=== PATIENT | male | born 1960 | race Caucasian/White ===

== ENCOUNTER 2019-10-20 05:55 | Inpatient (IN) | payer OTHER ==
--- NOTE | 2019-10-17 11:18 | PCM.SN.2 ---
- Free Text/Narrative Note: Left selective femoral nerve block at the adductor canal for post-procedure pain control under US guidance requested by Dr. Lima. Time Out: 912 Start: 914 End: 921 Chart reviewed. Consent signed. Questions answered. Appropriate monitors applied. Time out performed. Left mid-shaft femur identified with ultrasound, scanning medially of femur, the femoral artery in the adductor canal visualized, and the femoral nerve located laterally to the artery. The skin was prepped lateral to the ultrasound probe with chlorahexadine times two. The 21ga 4 insulated block needle was inserted under direct ultrasound guidance into the adductor canal. 25mL of 0.5% ropivacaine with 1:200,000 epinephrine was injected circumferentially around the nerve with intermittent negative aspiration noted. Patient tolerated the procedure well. Sterile technique noted along with sterile gloves, mask, and sterile probe cover. See picture on progress note and vital signs on nurses notes. Block completed in PACU. Nery Lassiter CRNA
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
[~2019-10-20 05:55] MED LIST: Acetaminophen 325 MG Tab PO SCH; Lactated Ringers 1,000 ML IV SCH; Lidocaine 1%/Sod Bicarbonate in NS 8.4% 1 ML Syringe IDERM PRN; Sodium Chloride 0.9% 10 ML Syringe FLUSH PRN
[2019-10-20] MEDS ORDERED: Acetaminophen 325 MG Tab PO SCH (06:00)
[2019-10-20] MEDS ORDERED: oxyCODONE ER 10 MG TAB.ER PO SCH (06:00)
[2019-10-20] MEDS ORDERED: Pregabalin 25 MG Cap PO SCH (06:00)
[2019-10-20] MEDS ORDERED: Albuterol 0.083% 2.5 MG/3 ML Neb Soln NEB PRN ×2 (06:00→07:31)
[2019-10-20] MEDS ORDERED: Morphine 2 MG/ML SYRINGE IVPUSH PRN (06:05)
[2019-10-20] MEDS ORDERED: Bisacodyl 5 MG Tab PO PRN (06:05)
[2019-10-20] MEDS ORDERED: Magnesium Hydroxide 400 MG/5 ML Susp 30 ML Cup PO PRN (06:05)
[2019-10-20] MEDS ORDERED: Sennosides 8.6 MG Tab PO PRN (06:05)
[2019-10-20] MEDS ORDERED: Naloxone 0.4 MG/ML SDV IVPUSH PRN (06:05)
[2019-10-20] MEDS ORDERED: Ondansetron 4 MG/2 ML SDV IVPUSH PRN ×2 (06:05→07:31)
[2019-10-20] MEDS ORDERED: Bupivacaine 0.25% 10 ML SDV ONE (06:28)
[2019-10-20] MEDS ORDERED: Vancomycin 1 GM SDV ONE (06:28)
[2019-10-20] MEDS ORDERED: Iodine/Sodium Iodide 2% Tincture 30 ML Bottle ONE (06:29)
[2019-10-20] MEDS ORDERED: ceFAZolin 1 GM Vial ONE ×2 (06:29→06:39)
[2019-10-20] MEDS ORDERED: Ondansetron 4 MG/2 ML SDV ONE (06:39)
[2019-10-20] MEDS ORDERED: Lidocaine 1% 6 ML ONE (06:39)
[2019-10-20] MEDS ORDERED: Ketorolac 30 MG/ML SDV ONE (06:39)
[2019-10-20] MEDS ORDERED: Lactated Ringers 2,000 ML ONE (06:39)
[2019-10-20] MEDS ORDERED: Propofol 200 MG/20 ML SDV ONE ×5 (06:40→08:36)
[2019-10-20] MEDS ORDERED: fentaNYL 100 MCG/2 ML SDV ONE (06:40)
[2019-10-20] MEDS ORDERED: Midazolam 1 MG/ML 2 ML SDV ONE (06:41)
[2019-10-20] MEDS ORDERED: Ketamine 500 mg/10 ML MDV ONE (06:41)
[2019-10-20] MEDS ORDERED: EPINEPHrine 1 MG/ML SDV ONE (06:46)
[2019-10-20] MEDS ORDERED: Ropivacaine 0.5% 5 MG/ML 30 ML SDV ONE (06:47)
[2019-10-20] MEDS ORDERED: ePHEDrine 50 MG/ML SDV IVPUSH PRN (07:31)
[2019-10-20] MEDS ORDERED: diphenhydrAMINE 50 MG/ML SDV IVPUSH PRN (07:31)
[2019-10-20] MEDS ORDERED: HYDROmorphone 0.5 MG/0.5 ML Syringe IVPUSH PRN (07:37)
[2019-10-20] MEDS ORDERED: Phenylephrine 1 MG in Sodium Chloride 0.9% 10 ML IV PRN (07:45)
[2019-10-20] MEDS: Morphine 8 MG, EPINEPHrine 0.3 MG, Cefuroxime 750 MG, Ketorolac 30 MG, Sodium Chloride ... ONE ×5 (08:33)
--- NOTE | 2019-10-20 09:10 | PCM.POSTAN ---
POST ANESTHESIA ASSESSMENT - MENTAL STATUS Mental Status: Alert - VITAL SIGNS Vital Signs: Last Vital Signs Temp 97.9 10/20/19 09 Pulse 65 10/20/19 0902 Resp 18 10/20/19 0902 BP 111/41 10/20/19901 Pulse Ox 96% 10/20/19901 - RESPIRATORY Respiratory Status: Respiratory Rate WNL, Airway Patent, O2 Saturation Stable, Supplemental Oxygen - CARDIOVASCULAR CV Status: Pulse Rate WNL, Blood Pressure Stable - GASTROINTESTINAL GI Status: No Symptoms - POST OP HYDRATION Hydration Status: Adequate & Stable
[2019-10-20] MEDS: fentaNYL 100 MCG/2 ML SDV IVPUSH PRN ×2 (09:12→09:30)
[2019-10-20] MEDS: Acetaminophen/oxyCODONE 325-5 MG Tab PO PRN ×3 (10:16→18:40)
--- NOTE | 2019-10-20 10:47 | CR ---
Left knee: AP and crosstable lateral views of the left knee were obtained. Comparison: Prior left knee MRI of 07/06/10. Knee prosthesis is seen. Components are aligned. Soft tissue air is noted from the surgical procedure. Underlying bony structures are intact. Impression: 1. Satisfactory radiographic appearance of recently placed left knee prosthesis. Diagnostic code #2 This report was dictated in MDT
--- NOTE | 2019-10-20 11:13 | PCM.OPNOTE ---
- General Post-Op/Procedure Note Date of Surgery/Procedure: 10/20/19 Operative Procedure(s): left total knee arthroplasty Pre Op Diagnosis: left knee osteoarthrosis Post-Op Diagnosis: Same Anesthesia Technique: Local, MAC, Spinal Primary Surgeon: Shayne Lima Anesthesia Provider: Nery Lassiter [employer] Worker: Melanie Solorzano [employer] Worker: Jeanie Malik EBL in mLs: 700 Complications: None Condition: Good Free Text/Narrative:: Intake & Output 10/19/19 10/20/19 10/20/19 22:59 06:59 14:59 Intake Total 580 Balance 580 6 femur 5 tibia 9mm 35x10
[2019-10-20] MEDS: Cyclobenzaprine 10 MG Tab PO PRN ×2 (11:26→20:10)
[2019-10-20] MEDS: Ketorolac 15 MG/ML SDV IVPUSH PRN ×2 (14:54→21:23)
[2019-10-20] MEDS: Gabapentin 600 MG Tab PO SCH ×2 (15:10→21:17)
[2019-10-20] MEDS: ceFAZolin 2 GM in Premix Bag 1 BAG IV SCH (16:48)
[2019-10-20] MEDS: ceFAZolin 1 GM in Premix Bag 1 BAG IV SCH (17:22)
--- NOTE | 2019-10-20 19:48 | PCM.CONS ---
H&P History of Present Illness - General Date of Service: 10/20/19 Admit Problem/Dx: Admission Diagnosis/Problem Admission Diagnosis/Problem Osteoarthritis of knee - History of Present Illness Initial Comments - Free Text/Narative: 59-year-old male who had left knee arthroplasty this morning by Dr. Lima. Medical team was consulted for medical management of his hypertension and hyperlipidemia. Postop patient is without chest pain, shortness of breath, nausea, vomiting. Blood pressures have been well controlled postop. Left Knee Pain Score (Numeric/FACES): 6 - Related Data Allergies/Adverse Reactions: Allergies Allergy/AdvReac Type Severity Reaction Status Date / Time No Known Allergies Allergy Verified 10/17/19 14:48 Home Medications: Home Meds Allopurinol [Zyloprim] 300 mg PO BID 08/06/15 [History] Furosemide [Lasix] 40 mg PO DAILY 08/06/15 [History] Lisinopril/Hydrochlorothiazide [Lisinopril-Hctz 20-25 mg Tab] 20 - 25 mg PO DAILY 08/06/15 [History] Aspirin 81 mg PO DAILY 10/17/19 [History] Gabapentin [Neurontin] 600 mg PO TID 10/17/19 [History] Metaxalone 800 mg PO DAILY PRN 10/17/19 [History] atorvaSTATin Calcium [Lipitor] 40 mg PO DAILY 10/17/19 [History] gemfibroziL [Gemfibrozil] 600 mg PO DAILY 10/17/19 [History] traMADol HCl [Tramadol HCl] 50 mg PO TID PRN 10/17/19 [History] Past Medical History HEENT History: Reports: Hard of Hearing Other HEENT History: right eustachian tube disorder, wears glasses Cardiovascular History: Reports: High Cholesterol, Hypertension, [place], Other (See Below) Other Cardiovascular History: About 5 years ago when having a stress test "it was found out that I had a heart attack from the scarring noted". Respiratory History: Reports: Asthma, Other (See Below) Other Respiratory History: Spring and fall allergies Gastrointestinal History: Reports: Colon Polyp Genitourinary History: Reports: None TRANSPORTATION TECHNICIAN History: Reports: None Musculoskeletal History: Reports: Back Pain, Chronic, Fracture Other Musculoskeletal History: lumbago, post laminectomy syndrome Neurological History: Reports: None Psychiatric History: Reports: None Endocrine/Metabolic History: Reports: Obesity/BMI 30+ Hematologic History: Reports: None Immunologic History: Reports: None Oncologic (Cancer) History: Reports: None Dermatologic History: Reports: None - Infectious Disease History Infectious Disease History: Reports: None - Past Surgical History Musculoskeletal Surgical History: Reports: Arthroscopic Knee Social & Family History - Family History Cardiac: Reports: Aneurysm, [place] Endocrine/Metabolic: Reports: Diabetes, Type I Hematologic: Reports: None Immunologic: Reports: None Oncologic: Reports: Ovarian, Uterine - Tobacco Use Smoking Status *Q: Current Every Day Smoker Years of Tobacco use: 40 Packs/Tins Daily: 0.1 Used Tobacco, but Quit: No - Caffeine Use Caffeine Use: Reports: Coffee, Soda - Alcohol Use Days Per Week of Alcohol Use: 1 Number of Drinks Per Day: 1 Total Drinks Per Week: 1 - Recreational Drug Use Recreational Drug Use: No H&P Review of Systems - Review of Systems: Review Of Systems: Comprehensive ROS is negative, except as noted in HPI. Exam - Exam Exam: See Below - Vital Signs Vital Signs: Last Vital Signs Temp 98.2 F 10/20/19 17:03 Pulse 90 10/20/19 17:03 Resp 14 10/20/19 17:03 BP 131/72 10/20/19 17:03 Pulse Ox 95 10/20/19 17:03 Weight: 154.675 kg - Exam General: Alert, Oriented, 4 HEENT: Conjunctiva Clear, Hearing Intact, Mucosa Moist & [place] Neck: Supple, Trachea Midline, 2 Lungs: Clear to Auscultation, Normal Respiratory Effort Cardiovascular: Regular Rate, Regular Rhythm GI/Abdominal Exam: Normal Bowel Sounds, Soft, Non-Tender, No Organomegaly, No Distention, No Abnormal Bruit, No Mass Extremities: Normal Inspection, Normal Range of Motion, Non-Tender, No Pedal Edema, Normal Capillary Refill Skin: Warm, Dry, Intact Neuro Extensive - Mental Status: Alert, Oriented x3, Normal Mood/Affect, Normal Cognition, Memory Intact Neuro Extensive - Motor, Sensory, Reflexes: CN II-XII Intact Psychiatric: Alert, Normal Affect, Normal Mood Sepsis Event Note - Evaluation Sepsis Screening Result: No Definite Risk - Focused Exam Vital Signs: Vital Signs Temp Temp Pulse Resp BP BP Pulse Ox 10/20/19 17:03 98.2 F 90 14 131/72 95 10/20/19 13:00 97.2 F 97 14 127/72 94 L 10/20/19 11:19 97 14 110/68 91 L 10/20/19 10:27 97.2 F 14 129/80 10/20/19 09:55 10/20/19 09:45 15 138/80 95 10/20/19 09:30 15 136/90 95 10/20/19 09:15 14 108/60 97 10/20/19 09:02 97.9 F 18 111/41 L 96 Pulse Ox 10/20/19 17:03 10/20/19 13:00 10/20/19 11:19 10/20/19 10:27 10/20/19 09:55 97 10/20/19 09:45 10/20/19 09:30 96 10/20/19 09:15 10/20/19 09:02 96 Consult PN Assessment/Plan POD#: 0 Procedures: Procedures ASSAY OF BLOOD/URIC ACID (10/22/13) COLONOSCOPY W/LESION REMOVAL (08/09/15) COMPLETE CBC W/AUTO DIFF WBC (10/10/13) COMPREHEN METABOLIC PANEL (10/10/13) LIPID PANEL (10/10/13) MRI JNT OF LWR EXTRE W/O DYE (10/08/18) MRI LUMBAR SPINE W/O & W/DYE (04/03/18) TISSUE EXAM BY PATHOLOGIST (08/09/15) (1) Hypertension SNOMED Code(s): 55873836 Code(s): I10 - ESSENTIAL (PRIMARY) HYPERTENSION Current Visit: Yes (2) Hyperlipidemia SNOMED Code(s): 28748194 Code(s): E78.5 - HYPERLIPIDEMIA, UNSPECIFIED Current Visit: Yes Problem List Initiated/Reviewed/Updated: Yes Plan: Postop left total knee arthroplasty * Pain meds per primary team * DVT prophylaxis per primary team Hypertension * Blood pressure well controlled postop: Blood pressures have ranged from 110/68-131/72 * Lisinopril hydrochlorothiazide restarted * Lasix held Hyperlipidemia * Atorvastatin and gemfibrozil restarted Patient is stable from a medical standpoint. Thank you for letting us participate in the care of this patient.
[2019-10-20] MEDS: Allopurinol 300 MG Tab PO SCH (21:17)
[2019-10-20] MEDS: Docusate Sodium 100 MG Cap PO SCH (21:17)
[2019-10-20] MEDS: Famotidine 20 MG Tab PO SCH (21:18)
[2019-10-21] MEDS: ceFAZolin 1 GM in Premix Bag 1 BAG IV SCH ×2 (00:44→08:34)
[2019-10-21] MEDS: ceFAZolin 2 GM in Premix Bag 1 BAG IV SCH ×2 (00:44→08:34)
[2019-10-21] MEDS: Acetaminophen/oxyCODONE 325-5 MG Tab PO PRN ×2 (00:45→06:00)
[2019-10-21] MEDS: Ketorolac 15 MG/ML SDV IVPUSH PRN (07:07)
--- NOTE | 2019-10-21 07:39 | PCM.CONSN ---
- General Info Date of Service: 10/21/19 Admission Dx/Problem (Free Text): Admission Diagnosis/Problem Admission Diagnosis/Problem Osteoarthritis of knee Functional Status: Reports: Pain Controlled, Tolerating Diet, Ambulating, Urinating, Incentive Spirometry. Denies: New Symptoms, Other - Review of Systems General: Reports: No Symptoms. Denies: Fever, Chills HEENT: Reports: No Symptoms. Denies: Headaches, Sore Throat Pulmonary: Reports: No Symptoms. Denies: Shortness of Breath, Pleuritic Chest Pain, Cough, Sputum, Wheezing Cardiovascular: Reports: No Symptoms. Denies: Chest Pain, Palpitations, Dyspnea on Exertion Gastrointestinal: Reports: No Symptoms. Denies: Abdominal Pain, Constipation, Nausea, Vomiting Genitourinary: Reports: No Symptoms. Denies: Pain Musculoskeletal: Reports: Leg Pain Skin: Reports: No Symptoms. Denies: Cyanosis Neurological: Reports: No Symptoms, Difficulty Walking, Gait Disturbance. Denies: Confusion, Pre-Existing Deficit, Trouble Speaking Psychiatric: Reports: No Symptoms. Denies: Confusion - Patient Data Vitals - Most Recent: Last Vital Signs Temp 99.0 F 10/21/19 04:22 Pulse 93 10/21/19 04:22 Resp 16 10/21/19 04:22 BP 107/91 H 10/21/19 04:22 Pulse Ox 91 L 10/21/19 04:22 Weight - Most Recent: 350 lb 6.4 oz I&O - Last 24 Hours: Intake & Output 10/20/19 10/21/19 10/21/19 22:59 06:59 14:59 Intake Total 220 750 Balance 220 750 Lab Results Last 24 Hours: Laboratory Results - last 24 hr 10/21/19 10/21/19 Range/Units 05:44 05:44 WBC 8.60 (4.23-9.07) K/mm3 RBC 4.51 L (4.63-6.08) M/mm3 Hgb 12.6 L (13.7-17.5) gm/dl Hct 38.0 L (40.1-51.0) % MCV 84.3 (79.0-92.2) fl MCH 27.9 (25.7-32.2) pg MCHC 33.2 (32.2-35.5) g/dl RDW Std Deviation 40.9 (35.1-43.9) fL Plt Count 177 (163-337) K/mm3 MPV 11.9 (9.4-12.3) fl Sodium 138 (136-145) mEq/L Potassium 3.7 (3.5-5.1) mEq/L Chloride 101 (98-107) mEq/L Carbon Dioxide 33 H (21-32) mEq/L Anion Gap 7.7 (5-15) BUN 18 (7-18) mg/dL Creatinine 0.9 (0.7-1.3) mg/dL Est Cr Clr Drug Dosing 92.38 mL/min Estimated GFR (MDRD) > 60 (>60) mL/min BUN/Creatinine Ratio 20.0 H (14-18) Glucose 109 H (74-106) mg/dL Total Bilirubin 0.6 (0.2-1.0) mg/dL AST 15 (15-37) U/L ALT 30 (16-63) U/L Alkaline Phosphatase 76 (46-116) U/L Total Protein 6.2 L (6.4-8.2) g/dl Albumin 3.3 L (3.4-5.0) g/dl Globulin 2.9 gm/dL Albumin/Globulin Ratio 1.1 (1-2) Med Orders - Current: Current Medications Allopurinol (Zyloprim) 300 mg PO BID [facility] Last Admin: 10/20/19 21:17 Dose: 300 mg Documented by: Aspirin (Ecotrin) 325 mg PO BID [facility] Bisacodyl (Dulcolax) 5 mg PO DAILY PRN PRN Reason: Constipation Cyclobenzaprine HCl (Flexeril) 10 mg PO TID PRN PRN Reason: Spasms Last Admin: 10/20/19 20:10 Dose: 10 mg Documented by: Docusate Sodium (Colace) 100 mg PO BID [facility] Last Admin: 10/20/19 21:17 Dose: 100 mg Documented by: Famotidine (Pepcid) 20 mg PO Q12H [facility] Last Admin: 10/20/19 21:18 Dose: 20 mg Documented by: Gabapentin (Neurontin) 600 mg PO TID [facility] Last Admin: 10/20/19 21:17 Dose: 600 mg Documented by: Gemfibrozil (Lopid) 600 mg PO DAILY [facility] Hydrochlorothiazide (Hydrochlorothiazide) 25 mg PO DAILY [facility] Cefazolin Sodium/Dextrose 2 gm (/ Premix) 50 mls @ 100 mls/hr IV Q8H [facility] Stop: 10/21/19 08:59 Last Admin: 10/21/19 00:44 Dose: 100 mls/hr Documented by: Cefazolin Sodium/Dextrose 1 gm (/ Premix) 50 mls @ 100 mls/hr IV Q8H [facility] Stop: 10/21/19 08:59 Last Admin: 10/21/19 00:44 Dose: 100 mls/hr Documented by: Lisinopril (Prinivil) 20 mg PO DAILY [facility] Magnesium Hydroxide (Milk Of Magnesia) 30 ml PO BID PRN PRN Reason: Constipation Morphine Sulfate (Morphine) 2 mg IVPUSH Q2H PRN PRN Reason: Breakthrough Pain Naloxone HCl (Narcan) 0.1 mg IVPUSH Q5M PRN PRN Reason: Oversedation Ondansetron HCl (Zofran) 4 mg IVPUSH Q6H PRN PRN Reason: Nausea/Vomiting Oxycodone/Acetaminophen (Percocet 325-5 Mg) 1 - 2 tab PO Q4H PRN PRN Reason: Pain Last Admin: 10/21/19 06:00 Dose: 2 tab Documented by: Rosuvastatin Calcium (Crestor) 10 mg PO DAILY [facility] Senna (Senna) 8.6 mg PO BID PRN PRN Reason: Constipation Discontinued Medications Acetaminophen (Tylenol) 650 mg PO ONETIME [facility] Acetaminophen (Tylenol) 975 mg PO ONETIME [facility] Stop: 10/20/19 12:00 Last Admin: 10/20/19 06:08 Dose: 975 mg Documented by: Albuterol (Proventil Neb Soln) 2.5 mg NEB ONETIME PRN PRN Reason: bronchodilation Stop: 10/20/19 18:00 Last Admin: 10/20/19 06:42 Dose: 2.5 mg Documented by: Albuterol (Proventil Neb Soln) 2.5 mg NEB ONETIME PRN PRN Reason: bronchodilation Stop: 10/20/19 13:00 Bupivacaine HCl (Sensorcaine-Mpf 0.25%) Confirm Administered Dose 30 ml .ROUTE .STK-MED ONE Stop: 10/20/19 06:29 Last Admin: 10/20/19 08:32 Dose: 30 ml Documented by: Cefazolin Sodium (Ancef) Confirm Administered Dose 2 gm .ROUTE .STK-MED ONE Stop: 10/20/19 06:30 Last Admin: 10/20/19 08:26 Dose: 2 gm Documented by: Cefazolin Sodium (Ancef) Confirm Administered Dose 3 gm .ROUTE .STK-MED ONE Stop: 10/20/19 06:40 Morphine Sulfate 8 mg/Epinephrine HCl 0.3 mg/Cefuroxime Sodium 750 mg/Ketorolac Tromethamine 30 mg/Sodium Chloride 7.9 ml 0 mg .XX ONETIME ONE Stop: 10/20/19 09:01 Last Admin: 10/20/19 08:33 Dose: 788.3 mg Documented by: Diphenhydramine HCl (Benadryl) 25 mg IVPUSH Q6H PRN PRN Reason: pruritis Stop: 10/20/19 18:00 Ephedrine Sulfate (Ephedrine Sulfate) 5 mg IVPUSH ASDIRECTED PRN PRN Reason: Hypotension Stop: 10/20/19 18:00 Epinephrine HCl (Adrenalin) Confirm Administered Dose 1 mg .ROUTE .STK-MED ONE Stop: 10/20/19 06:47 Fentanyl (Sublimaze) Confirm Administered Dose 100 mcg .ROUTE .STK-MED ONE Stop: 10/20/19 06:41 Fentanyl (Sublimaze) 50 mcg IVPUSH Q5M PRN PRN Reason: Pain Stop: 10/20/19 18:00 Last Admin: 10/20/19 09:30 Dose: 50 mcg Documented by: Hydromorphone HCl (Dilaudid) 0.5 mg IVPUSH ONETIME PRN PRN Reason: Pain Stop: 10/20/19 18:00 Last Admin: 10/20/19 09:05 Dose: 0.5 mg Documented by: Lactated Ringer's (Ringers, Lactated) 1,000 mls @ 125 mls/hr IV ASDIRECTED TERRI Stop: 10/20/19 23:00 Last Admin: 10/20/19 06:33 Dose: 125 mls/hr Documented by: Lidocaine HCl (Xylocaine-Mpf 1%) Confirm Administered Dose 6 mls @ as directed .ROUTE .STK-MED ONE Stop: 10/20/19 06:40 Lactated Ringer's (Ringers, Lactated) Confirm Administered Dose 2,000 mls @ as directed .ROUTE .STK-MED ONE Stop: 10/20/19 06:40 Phenylephrine HCl 1 mg/ Sodium (Chloride) 10.1 mls @ 1 mls/sec IV TITRATE PRN; Protocol PRN Reason: SEE COMMENT Stop: 10/20/19 18:00 Iodine (Iodine 2% Mild Tincture) Confirm Administered Dose 30 ml .ROUTE .STK-MED ONE Stop: 10/20/19 06:30 Last Admin: 10/20/19 08:25 Dose: 18 ml Documented by: Ketamine HCl (Ketalar) Confirm Administered Dose 500 mg .ROUTE .STK-MED ONE Stop: 10/20/19 06:42 Ketorolac Tromethamine (Toradol) 15 mg IVPUSH Q6H PRN PRN Reason: Pain Last Admin: 10/21/19 07:07 Dose: 15 mg Documented by: Ketorolac Tromethamine (Toradol) Confirm Administered Dose 30 mg .ROUTE .STK-MED ONE Stop: 10/20/19 06:40 Lidocaine/Sodium Bicarbonate (Buffered Lidocaine 1% In Ns 8.4%) 0.25 ml IDERM ONETIME PRN PRN Reason: Prior to IV Start Stop: 10/20/19 18:00 Last Admin: 10/20/19 06:33 Dose: 0.25 ml Documented by: Midazolam HCl (Versed 1 Mg/Ml) Confirm Administered Dose 2 mg .ROUTE .STK-MED ONE Stop: 10/20/19 06:42 Miscellaneous Medication (Phenylephrine 1 Mg/10 Ml-Ns) Confirm Administered Dose 0 mg IV .STK-MED ONE Stop: 10/20/19 06:40 Ondansetron HCl (Zofran) Confirm Administered Dose 4 mg .ROUTE .STK-MED ONE Stop: 10/20/19 06:40 Ondansetron HCl (Zofran) 4 mg IVPUSH ONETIME PRN PRN Reason: Nausea/Vomiting Stop: 10/20/19 18:00 Oxycodone HCl (Oxycontin) 10 mg PO ONETIME [facility] Stop: 10/20/19 12:00 Last Admin: 10/20/19 06:07 Dose: 10 mg Documented by: Pregabalin (Lyrica) 50 mg PO ONETIME [facility] Stop: 10/20/19 12:00 Last Admin: 10/20/19 06:08 Dose: 50 mg Documented by: Propofol (Diprivan 20 Ml) Confirm Administered Dose 400 mg .ROUTE .STK-MED ONE Stop: 10/20/19 06:41 Propofol (Diprivan 20 Ml) Confirm Administered Dose 200 mg .ROUTE .STK-MED ONE Stop: 10/20/19 07:53 Propofol (Diprivan 20 Ml) Confirm Administered Dose 200 mg .ROUTE .STK-MED ONE Stop: 10/20/19 08:10 Propofol (Diprivan 20 Ml) Confirm Administered Dose 200 mg .ROUTE .STK-MED ONE Stop: 10/20/19 08:22 Propofol (Diprivan 20 Ml) Confirm Administered Dose 200 mg .ROUTE .STK-MED ONE Stop: 10/20/19 08:37 Ropivacaine (Naropin 0.5%) Confirm Administered Dose 30 ml .ROUTE .STK-MED ONE Stop: 10/20/19 06:48 Sodium Chloride (Saline Flush) 10 ml FLUSH ASDIRECTED PRN PRN Reason: Keep Vein Open Stop: 10/20/19 18:00 Tranexamic Acid (Cyklokapron) Confirm Administered Dose 1,000 mg .ROUTE .STK-MED ONE Stop: 10/20/19 06:29 Last Admin: 10/20/19 08:40 Dose: 1,000 mg Documented by: Vancomycin HCl (Vancomycin) Confirm Administered Dose 1 gm .ROUTE .STK-MED ONE Stop: 10/20/19 06:29 Last Admin: 10/20/19 08:36 Dose: 1 gm Documented by: - Exam Quality Assessment: DVT Prophylaxis. No: Supplemental Oxygen, Urine Catheter General: Alert, Oriented, Cooperative, No Acute Distress HEENT: Pupils Equal, Pupils Reactive, Mucous Membr. Moist/Volin Neck: Supple, Trachea Midline Lungs: Clear to Auscultation, Normal Respiratory Effort Cardiovascular: Regular Rate, Regular Rhythm GI/Abdominal Exam: Normal Bowel Sounds, Soft, Non-Tender, No Organomegaly, No Distention (Male) Exam: Deferred Back Exam: Normal Inspection, Full Range of Motion Extremities: Leg Pain, Limited Range of Motion, Other (Bandage in place on right leg. Cooling pack in place.) Peripheral Pulses: 2+: Radial (L), Radial (R), Dorsalis Pedis (L), Dorsalis Pedis (R) Skin: Warm, Dry, Intact Wound/Incisions: Dressing Dry and Intact Neurological: No New Focal Deficit Psy/Mental Status: Alert, Normal Affect, Normal Mood Sepsis Event Note - Evaluation Sepsis Screening Result: No Definite Risk - Focused Exam Vital Signs: Vital Signs Temp Pulse Resp BP Pulse Ox 10/21/19 04:22 99.0 F 93 16 107/91 H 91 L 10/21/19 00:39 99.7 F 95 16 132/64 93 L 10/20/19 20:05 99.0 F 92 18 120/79 95 Consult PN Assessment/Plan POD#: 1 Procedures: Procedures ASSAY OF BLOOD/URIC ACID (10/22/13) COLONOSCOPY W/LESION REMOVAL (08/09/15) COMPLETE CBC W/AUTO DIFF WBC (10/10/13) COMPREHEN METABOLIC PANEL (10/10/13) LIPID PANEL (10/10/13) MRI JNT OF LWR EXTRE W/O DYE (10/08/18) MRI LUMBAR SPINE W/O & W/DYE (04/03/18) TISSUE EXAM BY PATHOLOGIST (08/09/15) (1) S/P total knee arthroplasty SNOMED Code(s): 5755373736108, 965684066, 5007961059568 Code(s): Z96.659 - PRESENCE OF UNSPECIFIED ARTIFICIAL KNEE JOINT Priority: High Current Visit: Yes Qualifiers: Laterality: left Qualified Code(s): Z96.652 - Presence of left artificial knee joint (2) Osteoarthritis SNOMED Code(s): 701960357 Code(s): M19.90 - UNSPECIFIED OSTEOARTHRITIS, UNSPECIFIED SITE Priority: High Current Visit: Yes Qualifiers: Osteoarthritis location: knee Osteoarthritis type: primary Laterality: left Qualified Code(s): M17.12 - Unilateral primary osteoarthritis, left knee (3) Obesity SNOMED Code(s): 111043949, 281740562 Code(s): E66.9 - OBESITY, UNSPECIFIED Priority: High Current Visit: Yes Qualifiers: Obesity type: unspecified obesity type Obesity classification: adult class 3 (BMI >= 40) Serious obesity comorbidity presence: unspecified whether serious comorbidity present Body mass index: BMI 50.0-59.9 Qualified Code(s): E66.01 - Morbid (severe) obesity due to excess calories; Z68.43 - Body mass index (BMI) 50.0-59.9, adult (4) Hyperlipidemia SNOMED Code(s): 48256911 Code(s): E78.5 - HYPERLIPIDEMIA, UNSPECIFIED Priority: Medium Current Visit: No Qualifiers: Hyperlipidemia type: unspecified Qualified Code(s): E78.5 - Hyperlipidemia, unspecified (5) Hypertension SNOMED Code(s): 85351820 Code(s): I10 - ESSENTIAL (PRIMARY) HYPERTENSION Priority: Medium Current Visit: No Qualifiers: Hypertension type: unspecified Qualified Code(s): I10 - Essential (primary) hypertension (6) History of SC (myocardial infarction) SNOMED Code(s): 676824877 Code(s): I25.2 - OLD MYOCARDIAL INFARCTION Priority: Medium Current Visit: No (7) Asthma SNOMED Code(s): 805111319 Code(s): J45.909 - UNSPECIFIED ASTHMA, UNCOMPLICATED Priority: Medium Current Visit: No Qualifiers: Asthma severity: unspecified severity Asthma persistence: unspecified Asthma complication type: unspecified Qualified Code(s): J45.909 - Unspecified asthma, uncomplicated (8) Post-laminectomy syndrome SNOMED Code(s): 01473936 Code(s): M96.1 - POSTLAMINECTOMY SYNDROME, NOT ELSEWHERE CLASSIFIED Priority: Low Current Visit: No (9) Lumbago SNOMED Code(s): 054410312 Code(s): M54.5 - LOW BACK PAIN Priority: Low Current Visit: No Qualifiers: Chronicity: unspecified Back pain laterality: unspecified Sciatica laterality: sciatica laterality unspecified (10) Chronic back pain SNOMED Code(s): 479079610 Code(s): M54.9 - DORSALGIA, UNSPECIFIED; G89.29 - OTHER CHRONIC PAIN Priority: Low Current Visit: No Qualifiers: Back pain location: back pain in unspecified location Back pain laterality: unspecified Qualified Code(s): M54.9 - Dorsalgia, unspecified; G89.29 - Other chronic pain (11) Disorder of right eustachian tube SNOMED Code(s): 9906456646617696 Code(s): H69.91 - UNSPECIFIED EUSTACHIAN TUBE DISORDER, RIGHT EAR Priority: Low Current Visit: No (12) Chewing tobacco use SNOMED Code(s): 27905850 Code(s): Z72.0 - TOBACCO USE Priority: Low Current Visit: No (13) Former smoker SNOMED Code(s): 1701731 Code(s): Z87.891 - PERSONAL HISTORY OF NICOTINE DEPENDENCE Priority: Low Current Visit: No Problem List Initiated/Reviewed/Updated: Yes Plan: I/P: Acute: S/P left total knee arthroplasty - post-operative day 1 -DVT prophylaxis and pain management per primary care team -PT/OT -IS/RT -Monitor oxygen saturation -Titrate oxygen as needed -Home medications reviewed -Vital signs stable -Monitor labs -Pre-operative Hgb was 15.1; Now 12.6 -Pre-operative GFR was >60; Now >60 Osteoarthritis of left knee -Pain management per primary care team Chronic: Hard of hearing HLD HTN History of SC Asthma Chronic back pain Right eustachian tube disorder Lumbago Postlaminectomy syndrome Obesity with BMI >50 Former smoker Chewing tobacco use Plan: CM for discharge planning GI prophylaxis Home medications as indicated Other orders as listed above Routine AM labs He is a full code. His PCP is Jaja Crawley PA-C From a hospitalist standpoint Cody is doing well. He has been up ambulating and working with PT and OT. He has urinated and is off of oxygen. His labs and vital signs remained stable. His pain is controlled. He has been utilizing his incentive spirometer. He is cleared for discharge pending primary team and PT/OT agreement. Thank you for allowing us to participate in the care of this patient!!
[2019-10-21 08:10] VITALS: BP 157/93; PULSE 98
[2019-10-21] MEDS: Famotidine 20 MG Tab PO SCH (08:30)
[2019-10-21] MEDS: Allopurinol 300 MG Tab PO SCH (08:31)
[2019-10-21] MEDS: Cyclobenzaprine 10 MG Tab PO PRN (08:31)
[2019-10-21] MEDS: Docusate Sodium 100 MG Cap PO SCH (08:31)
[2019-10-21] MEDS: Gabapentin 600 MG Tab PO SCH (08:32)
[2019-10-21] MEDS ORDERED: oxyCODONE 5 MG Tab PO PRN (08:37)
--- NOTE | 2019-10-21 08:40 | PCM48HPAN ---
Post Anesthesia Note - EVALUATION WITHIN 48HRS OF ANESTHETIC Vital Signs in Normal Range: Yes Patient Participated in Evaluation: Yes Respiratory Function Stable: Yes Airway Patent: Yes Cardiovascular Function Stable: Yes Hydration Status Stable: Yes Pain Control Satisfactory: Yes Nausea and Vomiting Control Satisfactory: Yes Mental Status Recovered: Yes Vital Signs: Last Vital Signs Temp 37.2 C 10/21/19 04:22 Pulse 98 10/21/19 07:33 Resp 19 10/21/19 07:33 BP 157/93 H 10/21/19 08:35 Pulse Ox 93 L 10/21/19 07:33
[2019-10-21] MEDS ORDERED: Hydrochlorothiazide 25 MG Tab PO SCH (09:00)
[2019-10-21] MEDS ORDERED: Lisinopril 20 MG Tab PO SCH (09:00)
[2019-10-21] MEDS ORDERED: Aspirin 325 MG Tab.EC PO SCH (09:00)
[2019-10-21] MEDS ORDERED: Rosuvastatin 10 MG Tab PO SCH (09:00)
[2019-10-21] MEDS ORDERED: Gemfibrozil 600 MG Tab PO SCH (09:00)
[2019-10-21] MEDS ORDERED: Rivaroxaban 10 MG Tab PO SCH (09:00)
--- NOTE | 2019-10-21 09:40 | PCM.DCSUM1 ---
Discharge Summary - Hospital Course Brief History: Cody is a 59 yo male who underwent left TKA with Dr. Lima on 10-20-2019. The procedure was completed under spinal anesthesia with sedation. A post-operative adductor canal block was provided. The pt tolerated the procedure well and was admitted to the Medical-Surgical Unit. Medical management was provided by the Hospitalist service. The pt's Hgb on POD#1 was 12.6. On POD#1, Xarelto 10mg PO daily was initiated for VTE prophylaxis. SCDs and TEDs were also ordered. A Mepilex dressing was placed at the incision site at the time of surgery and remained clean and dry. The pt participated in P.T. and O.T. and progressed well. The pt was allowed to WBAT and used a FWW for mobility. On POD#1, the pt was deemed appropriate to discharge to home with his . - Discharge Data Discharge Date: 10/21/19 Discharge Disposition: Home, Self-Care 01 Condition: Good - Referral to Home Health Primary Care Physician: PCP Not In Area - Patient Summary/Data Operative Procedure(s) Performed: left total knee arthroplasty Consults: Consultations 10/20/19 06:03 OT Evaluation and Treatment [CONS] Routine PT Evaluation and Treatment [CONS] Routine 10/20/19 06:05 Consult to Physician [CONS] Routine - Patient Instructions Diet: Usual Diet as Tolerated Activity: Apply Ice, As Tolerated, Elevate Extremity, Full Weight Bearing Driving: Do Not Drive Showering/Bathing: May Shower Wound/Incision Care: Keep Operative Site/Wound Site Clean and Dry, Do NOT Change Dressing Notify Provider of: Fever, Increased Pain, Swelling and Redness, Drainage, Nausea and/or Vomiting Other/Special Instructions: Please get up and moving around EVERY HOUR while awake. This helps to prevent blood clots. Please use your walker and have help with mobility as needed. Take a short walk in your home every hour while awake. Please take the Xarelto blood thinner medication daily as directed. You will use Xarelto for 14 days and THEN will transition to 325mg aspirin twice daily. At home, please complete the exercises that you learned during the Hospital stay. Schedule for physical therapy. Use the pain medication as needed. The medication may cause drowsiness and constipation. Contact your primary care provider for instructions if you are constipated. You may use a stool softener like docusate sodium or Colace 100mg twice daily and/or a laxative like Miralax daily for constipation. Increase your water and fiber intake while you are using the pain medication. Please discontinue use of the prescription pain medication as soon as able. The goal is to use the least amount of prescription pain medication as needed and to discontinue use of the prescription pain medication as soon as possible. Please do not use other medications that may cause drowsiness (other pain medications, anxiety pills, cold medications, sleeping pills, etc) while using the prescription pain m edication. Do not use alcohol while using the pain medication. You may use acetaminophen or Tylenol for pain management, however, please ensure you are not using over 4000 mg or 4 grams of acetaminophen per day from all sources. At this time, please do not use ibuprofen (Motrin, Advil) or naproxen (Aleve) for pain management as you are using the Xarelto (and then later the aspirin). When the Xarelto (and then later the aspirin) course is completed in 6 weeks (2 weeks of Xarelto and then 4 weeks of aspirin), you could use ibuprofen or naproxen for pain management (if this is allowed by your primary care provider). Wear the SADI hose during the day and you may remove these at night. Elevate the limb to decrease swelling. Place ice to the area often. Place a towel between your skin and the blue pad. Use the incentive spirometer often. Take deep breaths throughout the day. Please keep the dressing in place until follow-up. Notify the Clinic if the dressing becomes saturated. Increase your protein intake while you are healing. If you have diabetes or have been instructed by your primary care provider to check your blood sugars, please closely monitor your blood sugars and notify your primary care provider with abnormal values. Elevated blood sugars increases the risk of infection. It is normal to have swelling and bruising at the surgical site, as well as above and below the surgical site. Call the Clinic with questions or concerns - [phone] and leave a message for the nurse. - Discharge Plan *PRESCRIPTION DRUG MONITORING PROGRAM REVIEWED*: Yes *COPY OF PRESCRIPTION DRUG MONITORING REPORT IN PATIENT KEVIN: No Prescriptions/Med Rec: Cyclobenzaprine [Flexeril] 10 mg PO BID PRN #20 tablet PRN Reason: Spasms oxyCODONE 5 - 15 mg PO Q6H PRN #60 tablet PRN Reason: Pain Rivaroxaban [Xarelto] 10 mg PO DAILY #14 tab Home Medications: Home Meds Allopurinol [Zyloprim] 300 mg PO BID 08/06/15 [History] Furosemide [Lasix] 40 mg PO DAILY 08/06/15 [History] Lisinopril/Hydrochlorothiazide [Lisinopril-Hctz 20-25 mg Tab] 20 - 25 mg PO DAILY 08/06/15 [History] Gabapentin [Neurontin] 600 mg PO TID 10/17/19 [History] atorvaSTATin Calcium [Lipitor] 40 mg PO DAILY 10/17/19 [History] gemfibroziL [Gemfibrozil] 600 mg PO DAILY 10/17/19 [History] Cyclobenzaprine [Flexeril] 10 mg PO BID PRN #20 tablet 10/21/19 [Rx] Docusate Sodium [Colace] 100 mg PO BID cap 10/21/19 [Rx] Magnesium Hydroxide [Milk of Magnesia] 30 ml PO BID PRN cup 10/21/19 [Rx] Rivaroxaban [Xarelto] 10 mg PO DAILY #14 tab 10/21/19 [Rx] Sennosides [Senna] 8.6 mg PO BID PRN tablet 10/21/19 [Rx] bisacodyL [Dulcolax] 5 mg PO DAILY PRN tablet 10/21/19 [Rx] oxyCODONE 5 - 15 mg PO Q6H PRN #60 tablet 10/21/19 [Rx] Patient Handouts: Total Knee Replacement, [id number], Smokeless Tobacco Information, Adult, Steps to Quit Smoking Referrals: Melanie Solorzano PA-C [Physician Business Process Coordinator] - (You have 3 follow ups with Melanie Solorzano and they are as follows: 10/28/19 at 10:30am 11/04/19 at 10:30am 12/03/19 at 1:00pm) - Discharge Summary/Plan Comment DC Time >30 min.: No - Patient Data Vitals - Most Recent: Last Vital Signs Temp 99.0 F 10/21/19 04:22 Pulse 98 10/21/19 07:33 Resp 19 10/21/19 07:33 BP 157/93 H 10/21/19 08:35 Pulse Ox 93 L 10/21/19 07:33 Weight - Most Recent: 350 lb 6.4 oz I&O - Last 24 hours: Intake & Output 10/20/19 10/21/19 10/21/19 22:59 06:59 14:59 Intake Total 220 750 Balance 220 750 Lab Results - Last 24 hrs: Laboratory Results - last 24 hr 10/21/19 10/21/19 Range/Units 05:44 05:44 WBC 8.60 (4.23-9.07) K/mm3 RBC 4.51 L (4.63-6.08) M/mm3 Hgb 12.6 L (13.7-17.5) gm/dl Hct 38.0 L (40.1-51.0) % MCV 84.3 (79.0-92.2) fl MCH 27.9 (25.7-32.2) pg MCHC 33.2 (32.2-35.5) g/dl RDW Std Deviation 40.9 (35.1-43.9) fL Plt Count 177 (163-337) K/mm3 MPV 11.9 (9.4-12.3) fl Sodium 138 (136-145) mEq/L Potassium 3.7 (3.5-5.1) mEq/L Chloride 101 (98-107) mEq/L Carbon Dioxide 33 H (21-32) mEq/L Anion Gap 7.7 (5-15) BUN 18 (7-18) mg/dL Creatinine 0.9 (0.7-1.3) mg/dL Est Cr Clr Drug Dosing 92.38 mL/min Estimated GFR (MDRD) > 60 (>60) mL/min BUN/Creatinine Ratio 20.0 H (14-18) Glucose 109 H (74-106) mg/dL Total Bilirubin 0.6 (0.2-1.0) mg/dL AST 15 (15-37) U/L ALT 30 (16-63) U/L Alkaline Phosphatase 76 (46-116) U/L Total Protein 6.2 L (6.4-8.2) g/dl Albumin 3.3 L (3.4-5.0) g/dl Globulin 2.9 gm/dL Albumin/Globulin Ratio 1.1 (1-2) Med Orders - Current: Current Medications Allopurinol (Zyloprim) 300 mg PO BID [facility] Last Admin: 10/21/19 08:31 Dose: 300 mg Documented by: Bisacodyl (Dulcolax) 5 mg PO DAILY PRN PRN Reason: Constipation Cyclobenzaprine HCl (Flexeril) 10 mg PO TID PRN PRN Reason: Spasms Last Admin: 10/21/19 08:31 Dose: 10 mg Documented by: Docusate Sodium (Colace) 100 mg PO BID [facility] Last Admin: 10/21/19 08:31 Dose: 100 mg Documented by: Famotidine (Pepcid) 20 mg PO Q12H [facility] Last Admin: 10/21/19 08:30 Dose: 20 mg Documented by: Gabapentin (Neurontin) 600 mg PO TID [facility] Last Admin: 10/21/19 08:32 Dose: 600 mg Documented by: Gemfibrozil (Lopid) 600 mg PO DAILY [facility] Last Admin: 10/21/19 08:30 Dose: 600 mg Documented by: Hydrochlorothiazide (Hydrochlorothiazide) 25 mg PO DAILY [facility] Last Admin: 10/21/19 08:30 Dose: 25 mg Documented by: Lisinopril (Prinivil) 20 mg PO DAILY [facility] Last Admin: 10/21/19 08:35 Dose: 20 mg Documented by: Magnesium Hydroxide (Milk Of Magnesia) 30 ml PO BID PRN PRN Reason: Constipation Morphine Sulfate (Morphine) 2 mg IVPUSH Q2H PRN PRN Reason: Breakthrough Pain Naloxone HCl (Narcan) 0.1 mg IVPUSH Q5M PRN PRN Reason: Oversedation Ondansetron HCl (Zofran) 4 mg IVPUSH Q6H PRN PRN Reason: Nausea/Vomiting Oxycodone HCl (Oxycodone) 5 - 15 mg PO Q4H PRN PRN Reason: Pain Rivaroxaban (Xarelto) 10 mg PO DAILY [facility] Rosuvastatin Calcium (Crestor) 10 mg PO DAILY [facility] Last Admin: 10/21/19 08:31 Dose: 10 mg Documented by: Senna (Senna) 8.6 mg PO BID PRN PRN Reason: Constipation Discontinued Medications Acetaminophen (Tylenol) 650 mg PO ONETIME [facility] Acetaminophen (Tylenol) 975 mg PO ONETIME [facility] Stop: 10/20/19 12:00 Last Admin: 10/20/19 06:08 Dose: 975 mg Documented by: Albuterol (Proventil Neb Soln) 2.5 mg NEB ONETIME PRN PRN Reason: bronchodilation Stop: 10/20/19 18:00 Last Admin: 10/20/19 06:42 Dose: 2.5 mg Documented by: Albuterol (Proventil Neb Soln) 2.5 mg NEB ONETIME PRN PRN Reason: bronchodilation Stop: 10/20/19 13:00 Aspirin (Ecotrin) 325 mg PO BID [facility] Last Admin: 10/21/19 08:31 Dose: 325 mg Documented by: Bupivacaine HCl (Sensorcaine-Mpf 0.25%) Confirm Administered Dose 30 ml .ROUTE .STK-MED ONE Stop: 10/20/19 06:29 Last Admin: 10/20/19 08:32 Dose: 30 ml Documented by: Cefazolin Sodium (Ancef) Confirm Administered Dose 2 gm .ROUTE .STK-MED ONE Stop: 10/20/19 06:30 Last Admin: 10/20/19 08:26 Dose: 2 gm Documented by: Cefazolin Sodium (Ancef) Confirm Administered Dose 3 gm .ROUTE .STK-MED ONE Stop: 10/20/19 06:40 Morphine Sulfate 8 mg/Epinephrine HCl 0.3 mg/Cefuroxime Sodium 750 mg/Ketorolac Tromethamine 30 mg/Sodium Chloride 7.9 ml 0 mg .XX ONETIME ONE Stop: 10/20/19 09:01 Last Admin: 10/20/19 08:33 Dose: 788.3 mg Documented by: Diphenhydramine HCl (Benadryl) 25 mg IVPUSH Q6H PRN PRN Reason: pruritis Stop: 10/20/19 18:00 Ephedrine Sulfate (Ephedrine Sulfate) 5 mg IVPUSH ASDIRECTED PRN PRN Reason: Hypotension Stop: 10/20/19 18:00 Epinephrine HCl (Adrenalin) Confirm Administered Dose 1 mg .ROUTE .STK-MED ONE Stop: 10/20/19 06:47 Fentanyl (Sublimaze) Confirm Administered Dose 100 mcg .ROUTE .STK-MED ONE Stop: 10/20/19 06:41 Fentanyl (Sublimaze) 50 mcg IVPUSH Q5M PRN PRN Reason: Pain Stop: 10/20/19 18:00 Last Admin: 10/20/19 09:30 Dose: 50 mcg Documented by: Hydromorphone HCl (Dilaudid) 0.5 mg IVPUSH ONETIME PRN PRN Reason: Pain Stop: 10/20/19 18:00 Last Admin: 10/20/19 09:05 Dose: 0.5 mg Documented by: Lactated Ringer's (Ringers, Lactated) 1,000 mls @ 125 mls/hr IV ASDIRECTED [facility] Stop: 10/20/19 23:00 Last Admin: 10/20/19 06:33 Dose: 125 mls/hr Documented by: Cefazolin Sodium/Dextrose 2 gm (/ Premix) 50 mls @ 100 mls/hr IV Q8H [facility] Stop: 10/21/19 08:59 Last Admin: 10/21/19 08:34 Dose: 100 mls/hr Documented by: Lidocaine HCl (Xylocaine-Mpf 1%) Confirm Administered Dose 6 mls @ as directed .ROUTE .STK-MED ONE Stop: 10/20/19 06:40 Lactated Ringer's (Ringers, Lactated) Confirm Administered Dose 2,000 mls @ as directed .ROUTE .STK-MED ONE Stop: 10/20/19 06:40 Phenylephrine HCl 1 mg/ Sodium (Chloride) 10.1 mls @ 1 mls/sec IV TITRATE PRN; Protocol PRN Reason: SEE COMMENT Stop: 10/20/19 18:00 Cefazolin Sodium/Dextrose 1 gm (/ Premix) 50 mls @ 100 mls/hr IV Q8H [facility] Stop: 10/21/19 08:59 Last Admin: 10/21/19 08:34 Dose: 100 mls/hr Documented by: Iodine (Iodine 2% Mild Tincture) Confirm Administered Dose 30 ml .ROUTE .STK-MED ONE Stop: 10/20/19 06:30 Last Admin: 10/20/19 08:25 Dose: 18 ml Documented by: Ketamine HCl (Ketalar) Confirm Administered Dose 500 mg .ROUTE .STK-MED ONE Stop: 10/20/19 06:42 Ketorolac Tromethamine (Toradol) 15 mg IVPUSH Q6H PRN PRN Reason: Pain Last Admin: 10/21/19 07:07 Dose: 15 mg Documented by: Ketorolac Tromethamine (Toradol) Confirm Administered Dose 30 mg .ROUTE .STK-MED ONE Stop: 10/20/19 06:40 Lidocaine/Sodium Bicarbonate (Buffered Lidocaine 1% In Ns 8.4%) 0.25 ml IDERM ONETIME PRN PRN Reason: Prior to IV Start Stop: 10/20/19 18:00 Last Admin: 10/20/19 06:33 Dose: 0.25 ml Documented by: Midazolam HCl (Versed 1 Mg/Ml) Confirm Administered Dose 2 mg .ROUTE .STK-MED ONE Stop: 10/20/19 06:42 Miscellaneous Medication (Phenylephrine 1 Mg/10 Ml-Ns) Confirm Administered Dose 0 mg IV .STK-MED ONE Stop: 10/20/19 06:40 Ondansetron HCl (Zofran) Confirm Administered Dose 4 mg .ROUTE .STK-MED ONE Stop: 10/20/19 06:40 Ondansetron HCl (Zofran) 4 mg IVPUSH ONETIME PRN PRN Reason: Nausea/Vomiting Stop: 10/20/19 18:00 Oxycodone HCl (Oxycontin) 10 mg PO ONETIME [facility] Stop: 10/20/19 12:00 Last Admin: 10/20/19 06:07 Dose: 10 mg Documented by: Oxycodone/Acetaminophen (Percocet 325-5 Mg) 1 - 2 tab PO Q4H PRN PRN Reason: Pain Last Admin: 10/21/19 06:00 Dose: 2 tab Documented by: Pregabalin (Lyrica) 50 mg PO ONETIME [facility] Stop: 10/20/19 12:00 Last Admin: 10/20/19 06:08 Dose: 50 mg Documented by: Propofol (Diprivan 20 Ml) Confirm Administered Dose 400 mg .ROUTE .STK-MED ONE Stop: 10/20/19 06:41 Propofol (Diprivan 20 Ml) Confirm Administered Dose 200 mg .ROUTE .STK-MED ONE Stop: 10/20/19 07:53 Propofol (Diprivan 20 Ml) Confirm Administered Dose 200 mg .ROUTE .STK-MED ONE Stop: 10/20/19 08:10 Propofol (Diprivan 20 Ml) Confirm Administered Dose 200 mg .ROUTE .STK-MED ONE Stop: 10/20/19 08:22 Propofol (Diprivan 20 Ml) Confirm Administered Dose 200 mg .ROUTE .STK-MED ONE Stop: 10/20/19 08:37 Ropivacaine (Naropin 0.5%) Confirm Administered Dose 30 ml .ROUTE .STK-MED ONE Stop: 10/20/19 06:48 Sodium Chloride (Saline Flush) 10 ml FLUSH ASDIRECTED PRN PRN Reason: Keep Vein Open Stop: 10/20/19 18:00 Tranexamic Acid (Cyklokapron) Confirm Administered Dose 1,000 mg .ROUTE .STK-MED ONE Stop: 10/20/19 06:29 Last Admin: 10/20/19 08:40 Dose: 1,000 mg Documented by: Vancomycin HCl (Vancomycin) Confirm Administered Dose 1 gm .ROUTE .STK-MED ONE Stop: 10/20/19 06:29 Last Admin: 10/20/19 08:36 Dose: 1 gm Documented by:
[2019-10-21] MEDS: Morphine 8 MG, EPINEPHrine 0.3 MG, Cefuroxime 750 MG, Ketorolac 30 MG, Sodium Chloride ... ONE ×5 (11:33)
--- NOTE | 2019-10-21 16:13 | OR ---
DATE OF OPERATION: 10/20/2019 SURGEON: Shayne Lima MD OPERATION PERFORMED: Left total knee arthroplasty. PREOPERATIVE DIAGNOSIS: Left knee osteoarthrosis. POSTOPERATIVE DIAGNOSIS: Left knee osteoarthrosis. ANESTHESIA: Local MAC with spinal. ANESTHESIA PROVIDER: Nery Lassiter CRNA ASSISTANTS: Melanie Solorzano PA-C, and Jeanie Malik LPN. ESTIMATED BLOOD LOSS: 700 mL. COMPLICATIONS: None. CONDITION: Stable. IMPLANTS: 1. Meadowview size 6 press-fit CR femur. 2. Jose size 5 press-fit tibial base plate. 3. [place]view size 5, 9 mm CS polyethylene insert. 4. [place]view size 35 x 10 mm asymmetric press-fit patella. This patient's case was severely more difficult than a normal total knee arthroplasty secondary to the patient's very large BMI as well as large circumference of his thigh and calf and his limited range of motion about his left knee. DESCRIPTION OF PROCEDURE: The patient was identified in the preop holding area. Proper site was marked and identified by the surgeon. The patient was taken back to the operating theater. After adequate anesthesia, the patient's left lower extremity had a nonsterile tourniquet applied and it was sterilely prepped and draped in the usual sterile fashion. OR time-out was performed. The patient received 2 g IV Ancef. At this time, the left lower extremity was exsanguinated. Tourniquet was insufflated to 300 mmHg. Standard medial parapatellar incision was made. Medial parapatellar arthrotomy was created. Deep fibers of the MCL were raised and anterior fat pad was resected. At this time, attention was turned to the patella. Patella measured 25, it was resected to a 15 for a 35 x 10 mm patella. Drill holes were then drilled and found to be in adequate position. The drill was then drilled in the distal femur and the intramedullary distal femoral cutting guide was then placed. 10 mm was resected off the distal femur and was found to be an adequate resection. Sizing guide was placed. It was found to be a size 6 press-fit CR femur that was shown on the implant record at the beginning of this dictation. The drill holes were drilled for the epicondylar axis using Whitesides line and epicondyles as reference. At this time, the 4-in- 1 cutting block was placed. An anterior posterior and anterior and posterior chamfer cuts were then completed. Attention was turned to the tibia. The posterior medial lateral retractors were placed. The extramedullary tibial guide was placed. It was placed in the old footprint of the ACL. It was aligned with the center of the ankle and 0 degrees of slope, 9 mm was then resected off the unaffected side. There was found to be an acceptable reduction. At this time, posterior osteophytes were removed along with medial and lateral meniscus. A trial implant was placed with a correct sized tibia that was mentioned at the beginning of the dictation. A Jose size 5, 9 mm CS polyethylene insert was then placed. The patient's knee was brought through range of motion. The patella was tracking centrally and was stable to varus and valgus stress. Alignment was found to be roughly at 0 degrees. The tibia was stamped and drilled in proper rotation. The universal tibial base plate was impacted in place. Next, the [place]view size 6 press-fit CR femur impacted into place and the Jose size 5, 9 mm CS polyethylene insert was placed. The patient's knee was brought into full extension. The patella was then press-fit in place at this time. Tourniquet was deflated. One liter dilute Betadine solution was irrigated through the knee along with 3 L of pulse lavage irrigation with Ancef. Periarticular injection was then completed. The patient's knee was brought through a range of motion. Knee was found to be stable to varus valgus stress, the patella was tracking centrally with full range of motion. At this time, a #2 barbed suture was used for closure of the medial parapatellar arthrotomy. Topical tranexamic acid was placed. 2-0 Vicryl was used subcutaneously, Prineo was used for the skin. The patient tolerated the procedure well and was sent to the PACU in stable condition. DONNA /[id number] PAVAN
== END 2019-10-21 11:43 | disposition home or self-care (01) | DRG 470 ==
LOC: JD.SDS 05:55 → JD.OB 05:55 → JD.SDS 14:47 → JD.OB 14:47 → JD.MS 20:56
PROVIDERS: ADMIT Orthopaedic Surgery; ATTEND Orthopaedic Surgery
PROC: 0SRD0JA Replacement of Left Knee Joint with Synthetic Substitute, Uncemented, Open Approach (ICD-10-PCS; principal; 2019-10-20)
DX: M17.12 Unilateral primary osteoarthritis, left knee (principal); Z68.42 Body mass index [BMI] 45.0-49.9, adult; I10 Essential (primary) hypertension; E78.5 Hyperlipidemia, unspecified; H91.90 Unspecified hearing loss, unspecified ear; H54.7 Unspecified visual loss; E78.00 Pure hypercholesterolemia, unspecified; J45.909 Unspecified asthma, uncomplicated; G89.29 Other chronic pain; M54.9 Dorsalgia, unspecified; E66.9 Obesity, unspecified; F17.210 Nicotine dependence, cigarettes, uncomplicated; M96.1 Postlaminectomy syndrome, not elsewhere classified; H69.91 Unspecified Eustachian tube disorder, right ear; Z79.899 Other long term (current) drug therapy; Z79.82 Long term (current) use of aspirin; I25.2 Old myocardial infarction; Z86.010 Personal history of colon polyps; Z20.828 Contact with and (suspected) exposure to other viral communicable diseases
CPT/HCPCS: 01402; 36415; 64450; 73560-26-LT; 73560-LT; 80053; 85027; 87641; 94640; 97110-GP; 97116-GP; 97161-GP; 97165-GO; 99221; 99231; A9270-GY; C1776; J0171; J0690; J0697; J1170; J1885; J2001; J2250; J2270; J2370; J2405; J2704; J2795; J3010; J3370; J3490; J7120; U0002